=== PATIENT | female | born 1930 | race Caucasian/White ===

== ENCOUNTER 2016-04-18 08:03 | Day surgery (SDC) | payer OTHER ==
[2016-04-18] MEDS ORDERED: ACETAMINOPHEN 325 MG ONE (08:15)
[2016-04-18] MEDS: PROPARACAINE HCL 0.5% OPHTHALMIC SOL ONE ×3 (08:22→10:02)
[2016-04-18] MEDS: PHENYLEPHRINE HCL 10% OPHTHAL SOL ONE ×2 (08:22→08:40)
[2016-04-18] MEDS ORDERED: BROMFENAC SODIUM 3 ML DROPS LEFTEYE ONE ×2 (08:23→08:40)
[2016-04-18] MEDS: CYCLOPENTOLATE 1% SOL ONE ×2 (08:23→08:40)
[2016-04-18] MEDS: MOXIFLOXACIN-HOME SOL LEFTEYE ONE ×2 (08:23→10:40)
[2016-04-18] MEDS ORDERED: MOXIFLOXACIN-HOME SOL LEFTEYE ONE (08:40)
[2016-04-18] MEDS ORDERED: POVIDONE IODINE 5% SOL ONE (09:16)
[2016-04-18] MEDS ORDERED: TRYPAN BLUE 0.5 ML SOL IO ONE (09:16)
[2016-04-18] MEDS ORDERED: LIDOCAINE HCL 1% MPF SOL ONE (09:16)
[2016-04-18] MEDS ORDERED: BSS W/ 0.25MG P.F. EPI 1 BOTTLE ONE (09:16)
[2016-04-18] MEDS ORDERED: FENTANYL CITRATE 50 MCG/ML SOL ONE (09:31)
[2016-04-18] MEDS ORDERED: MIDAZOLAM 2 MG/2 ML SOL ONE (09:31)
[2016-04-18] MEDS ORDERED: ACETAZOLAMIDE 500 MG CER ONE (11:13)
[2016-04-18 11:46] VITALS: BP 115/66; PULSE 60; RESP 20; O2SAT 96
== END 2016-04-18 11:30 | disposition home or self-care (01) | DRG 125 ==
LOC: SURG 08:03
PROVIDERS: ATTEND Ophthalmology
DX: H25.9 Unspecified age-related cataract (principal); H21.81 Floppy iris syndrome
CPT/HCPCS: J2250; J3010; J2001